=== PATIENT | female | born 1965 | race Caucasian/White ===

== ENCOUNTER 2023-05-08 16:07 | Emergency (ER) | payer OTHER, SELFPAY ==
[2023-05-08 16:09] VITALS: BP 130/82; PULSE 95; RESP 18; TEMP 36.9; O2SAT 98; BMI 28.3
--- NOTE | 2023-05-08 16:20 | PC.NURSE ---
Dr. Kuhn at bedside
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
--- NOTE | 2023-05-08 16:36 | ECG_ITS ---
APPROVED REPORT Exam: Resting ECG HR:75 bpm ECG Measurements Heart Rate 75 AXES VA 131 P 60 QRSd 101 QRS 48 QT 387 T 13 QTc 416 Conclusion SINUS RHYTHM MINIMAL ST DEPRESSION [0.025+ mV ST DEPRESSION] BORDERLINE ECG UNCONFIRMED REPORT Electronically signed by : Anthony Carter MD 05/09/2023 10:05:13
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
[2023-05-08 17:27] LABS: Basophils # 0.1 K/mm3 (0-0.2); Basophils % 0.4 % (0.1-2.0); Eosinophils # 0.1 K/mm3 (0.0-0.4); Eosinophils % 0.9 % (0.1-12.0); Lymphocytes # 1.5 K/mm3 (0.7-4.5); Lymphocytes % 13.5 % (10-50); Mean Corpuscular HGB Conc 32.5 g/dL (31.8-35.4); Mean Corpuscular Volume 92.3 fl (81-99); Mean Platelet Volume 8.2 fl (7.4-10.4); Monocytes # 0.5 K/mm3 (0.1-1.0); Monocytes % 4.1 % (1.7-9.3); Neutrophils # 9.1 K/mm3 (1.8-7.8); Platelet Count 234 K/mm3 (142-424); Red Blood Count 4.66 M/mm3 (4.20-5.40); Red Cell Distribution Width 13.1 % (11.5-17.5); White Blood Count 11.2 K/mm3 (4.8-10.8)
[2023-05-08 17:30] VITALS: BP 126/79; PULSE 69; RESP 18; O2SAT 100
[2023-05-08 17:31] LABS: Microscopic, Urine URINE MICROSCOPIC (MICROSCOPIC)
[2023-05-08 17:34] LABS: Alanine Aminotransferase 31 U/L (12-78); Albumin Level 4.3 g/dl (3.5-5.0); Albumin/Globulin Ratio 1.6 (1.1-1.8); Alkaline Phosphatase 107 U/L (38-126); Aspartate Amino Transferase 49 U/L (14-36); Bilirubin,Total 0.5 mg/dl (0.2-1.3); Blood Urea Nitrogen 19 mg/dl (7-17); Calcium 8.8 mg/dl (8.4-10.2); Carbon Dioxide 28 mmol/L (22.0-30.0); Chloride 104 mmol/L (98-107); Creatinine Clearance Estimated 77 mL/min (50-200); Estimated Glomerular Filt Rate 65 ml/min (>60); GFR (African American) 78 ML/MIN (>60); Globulin 2.7 g/dL (1.3-3.2); Glucose 108 mg/dl (74-100); Lipase 97 U/L (23-300); Sodium 139 mmol/L (136-145)
[2023-05-08 17:40] LABS: Appearance,Urine CLEAR (Clear); Bilirubin,Urine Negative (Negative); Blood, Urine TRACE-I (Negative); Color,Urine YELLOW (Yellow); Glucose,Urine (UA) Negative (Negative); Ketones,Urine Negative (Negative); Leukocyte Esterase,Urine Negative (Negative); Nitrate,Urine Negative (Negative); Protein,Urine Negative (Negative); Specific Gravity, Urine <= 1.005 (1.005-1.030); Urobilinogen,Urine 0.2 EU/dl (0.2)
[2023-05-08 17:45] VITALS: BP 102/73; PULSE 75; O2SAT 96
[2023-05-08 17:46] LABS: Troponin I < 0.01 ng/ml (0.00-0.034)
[2023-05-08 17:54] LABS: Squamous Epithelial Cell,Urine Occasional #/hpf (0-5)
--- NOTE | 2023-05-08 18:03 | PC.NURSE ---
PT GONE TO CT
--- NOTE | 2023-05-08 18:12 | PC.NURSE ---
PT ARRIVED BACK TO ROOM FROM CT
[2023-05-08] MEDS: SODIUM CHLORIDE 0.9% 10ML SYR (RAD ONLY) 10 ML IV (18:21)
[2023-05-08] MEDS: IOPAMIDOL-370 (76%);100ML BOTTLE 100 ML IV (18:21)
[2023-05-08] MEDS: 0.9 % SODIUM CHLORIDE 50 ML VIAL IV (18:21)
[2023-05-08 18:30] VITALS: BP 99/73; PULSE 76; O2SAT 98
[2023-05-08 19:05] VITALS: BP 99/66; PULSE 68; RESP 16; TEMP 36.9; O2SAT 98
== END 2023-05-08 19:07 | disposition home or self-care (01) ==
PROVIDERS: Emergency Provider Emergency Medicine
DX: S30.1XXA Contusion of abdominal wall, initial encounter (principal); R07.89 Other chest pain; M54.50 Low back pain, unspecified; S60.511A Abrasion of right hand, initial encounter; V49.40XA Driver injured in collision with unspecified motor vehicles in traffic accident, initial encounter
CPT/HCPCS: 70450; 71275; 72125; 72128; 72131; 74174; 80053; 81001; 83690; 84484; 85025; 93005; 99285; Q9967